=== PATIENT | female | born 1965 | race American Indian/Alaskan Native ===

== ENCOUNTER 2017-04-18 12:56 | Outpatient (CLI) | payer BC ==
--- NOTE | 2017-04-18 14:41 | Mammography Report ---
Bilateral mammogram: Compared to 05/16/15. CAD study utilized. Findings: Predominance of of adipose tissue bilaterally. Benign density right breast without significant interval change. Benign axillary nodes. No microcalcification. Impression: Benign findings. Annual followup recommended. BI-RADS CATEGORY: 2 = Benign ACR BI-RADS MAMMOGRAPHIC CODES: 0 = Needs additional imaging evaluation; 1 = Negative; 2 = Benign; 3 = Probably benign; 4 = Suspicious; 5 = Malignant; 6 = Known biopsy-proven malignancy COMMENT: 1. Dense breast tissue, i.e., adenosis, fibrocystic changes, etc., may obscure an underlying neoplasm. 2. Approximately 10% of cancers are not detected with mammography. 3. A negative mammography report should not delay biopsy if a clinically suspicious mass is present. COMMENT: Patient follow-up letters are generated in [employer].
== END 2017-04-18 12:57 | disposition home or self-care (01) ==
LOC: MAMMO 12:56
PROVIDERS: ATTEND Obstetrics & Gynecology
DX: Z12.31 Encounter for screening mammogram for malignant neoplasm of breast (principal); I10 Essential (primary) hypertension; D64.9 Anemia, unspecified; F17.200 Nicotine dependence, unspecified, uncomplicated
CPT/HCPCS: 77067; G0202

== ENCOUNTER 2017-04-22 18:12 | Emergency (ER) | payer BC ==
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
[2017-04-22 21:17] VITALS: BP 151/74
[2017-04-22] MEDS ORDERED: TORADOL IM ONE (22:51)
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
--- NOTE | 2017-04-23 08:20 | XRay Report ---
LEFT HAND, 3 views: History: Left hand pain. A ring obscures part of the proximal phalanx of the fourth digit. The bony architecture is intact. Bony alignment is normal. No soft tissue abnormalities are seen. The joint spaces appear preserved. IMPRESSION: No abnormality identified.
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
== END 2017-04-22 23:13 | disposition home or self-care (01) ==
LOC: ED 18:12
DX: S39.012A Strain of muscle, fascia and tendon of lower back, initial encounter (principal); S60.222A Contusion of left hand, initial encounter; I10 Essential (primary) hypertension; F17.200 Nicotine dependence, unspecified, uncomplicated; V49.59XA Passenger injured in collision with other motor vehicles in traffic accident, initial encounter; Y92.488 Other paved roadways as the place of occurrence of the external cause; Y93.89 Activity, other specified; Y99.8 Other external cause status
CPT/HCPCS: 72100; 73130; 96372; 99283; J1885

== ENCOUNTER 2017-05-27 16:19 | Inpatient (IN) | payer BC ==
[2017-05-27] MEDS ORDERED: NACL 0.9% 1000 ML 1,000 ML ONE (16:47)
[2017-05-27] MEDS ORDERED: ZOFRAN ONE (16:47)
[2017-05-27] MEDS ORDERED: ZOFRAN IV ONE (16:50)
[2017-05-27] MEDS ORDERED: MORPHINE IV ONE ×3 (16:50→18:52)
[2017-05-27] MEDS ORDERED: NACL 0.9% 1000 ML 1,000 ML IV ONE ×2 (16:50→18:55)
[2017-05-27] MEDS ORDERED: MORPHINE ONE (16:56)
--- NOTE | 2017-05-27 16:58 | Emergency Department Report ---
ED Abdominal Pain HPI - General Chief Complaint: Abdominal Pain Stated Complaint: ABD PAIN Time Seen by Provider: 05/27/17 16:46 Source: patient, family, EMS Mode of arrival: Stretcher Limitations: No Limitations - History of Present Illness MD Complaint: abdominal pain Location: diffuse Radiation: none Migration to: no migration Severity: moderate Quality: sharp Consistency: constant Associated Symptoms: nausea. denies: vomiting, diarrhea, fever, hematemesis, hematochezia, melena, hematuria, anorexia, syncope - Related Data Home Medications Medication Instructions Recorded Confirmed Last Taken Triamter/Hctz 37.5-25 mg 1 tab PO QDAY 03/28/14 04/22/17 04/14/17 [Maxzide-25] Previous Rx's Medication Instructions Recorded Last Taken Type Cyclobenzaprine [Flexeril] 10 mg PO TID PRN #10 tablet 04/22/17 Unknown Rx HYDROcodone/APAP 5-325 [[place] 1 - 2 each PO Q6HR PRN #10 tablet 04/22/17 Unknown Rx 5/325] Ibuprofen [Motrin 800 MG tab] 800 mg PO Q8HR PRN #20 tablet 04/22/17 Unknown Rx Allergies Allergy/AdvReac Type Severity Reaction Status Date / Time No Known Allergies Allergy Verified 04/22/17 21:17 ED Review of Systems ROS: Stated complaint: ABD PAIN Other details as noted in HPI Comment: All other systems reviewed and negative Constitutional: denies: chills, fever, malaise Respiratory: denies: cough, orthopnea, shortness of breath, SOB with exertion Cardiovascular: denies: chest pain, palpitations Gastrointestinal: abdominal pain, nausea, diarrhea. denies: vomiting, constipation, hematemesis, melena, hematochezia Genitourinary: denies: urgency, dysuria, frequency Musculoskeletal: denies: back pain Neurological: denies: headache ED Past Medical Hx - Past Medical History Previous Medical History?: Yes Hx Hypertension: Yes Hx Congestive Heart Failure: No Hx Diabetes: Yes (dx 05/27/2017) Hx Asthma: No Hx COPD: No Hx HIV: No Additional medical history: Uterine fibroids - Surgical History Past Surgical History?: Yes Hx Breast Surgery: Yes (BREAST REDUCTION) Additional Surgical History: Hemmorroidectomy. Tummy tuck - Social History Smoking Status: Current Every Day Smoker (1/2.5 pack per day) Substance Use Type: None (denies illicit drug use), Alcohol (occasional) - Medications Home Medications: Home Medications Medication Instructions Recorded Confirmed Last Taken Type Triamter/Hctz 37.5-25 mg 1 tab PO QDAY 03/28/14 04/22/17 04/14/17 History [Maxzide-25] Cyclobenzaprine [Flexeril] 10 mg PO TID PRN #10 tablet 04/22/17 Unknown Rx HYDROcodone/APAP 5-325 [[place] 1 - 2 each PO Q6HR PRN #10 tablet 04/22/17 Unknown Rx 5/325] Ibuprofen [Motrin 800 MG tab] 800 mg PO Q8HR PRN #20 tablet 04/22/17 Unknown Rx ED Physical Exam - General Limitations: No Limitations General appearance: alert, in distress (due to pain) - Head Head exam: Present: normocephalic - Eye Eye exam: Present: normal appearance - ENT ENT exam: Present: normal exam - Neck Neck exam: Present: normal inspection, full ROM. Absent: tenderness, meningismus - Respiratory Respiratory exam: Present: normal lung sounds bilaterally. Absent: respiratory distress, wheezes, rales, rhonchi, stridor, chest wall tenderness, decreased breath sounds, prolonged expiratory - Cardiovascular Cardiovascular Exam: Present: regular rate, normal rhythm, normal heart sounds. Absent: systolic murmur, diastolic murmur - GI/Abdominal GI/Abdominal exam: Present: soft, tenderness (diffuse), normal bowel sounds. Absent: distended, guarding, rebound, rigid, diminished bowel sounds, organomegaly, mass, bruit, pulsatile mass, hernia - Extremities Exam Extremities exam: Present: normal inspection, full ROM, normal capillary refill - Back Exam Back exam: Present: normal inspection. Absent: CVA tenderness (R), CVA tenderness (L) - Neurological Exam Neurological exam: Present: alert, oriented X3, CN II-XII intact - Psychiatric Psychiatric exam: Present: normal affect. Absent: depressed - Skin Skin exam: Present: warm, dry, intact, normal color ED Course Vital Signs 05/27/17 05/27/17 16:24 17:02 Temperature 98.8 F Pulse Rate 92 H Respiratory 20 16 Rate Blood Pressure 130/90 O2 Sat by Pulse 98 99 Oximetry - Reevaluation(s) Reevaluation #1: 05/27/17 18:53 Patient stated that she still hurting. Admitted for drinking alcohol every day. ED Medical Decision Making - Lab Data Result diagrams: 05/27/17 16:30 05/27/17 16:30 - Radiology Data Radiology results: report reviewed CT abdomen and pelvis is acute pancreatitis - Medical Decision Making discuss with dr Silva for admission. Critical care attestation.: If time is entered above; I have spent that time in minutes in the direct care of this critically ill patient, excluding procedure time. ED Disposition Clinical Impression: Abdominal pain, Acute pancreatitis Disposition: DC- OP ADMIT IP TO THIS HOSP Is pt being admited?: Yes Condition: Stable Instructions: Abdominal Pain (ED)
[2017-05-27 17:08] LABS: Basophils % (Auto) 0.9 % (0.0-1.8); Eosinophils % (Auto) 0.8 % (0.0-4.3); Hematocrit 41.6 % (30.3-42.9); Hemoglobin 14.3 gm/dl (10.1-14.3); Mean Corpuscular HGB Conc 34 % (30-34); Mean Corpuscular Hemoglobin 30 pg (28-32); Mean Corpuscular Volume 88 fl (79-97); Platelet Count 224 K/mm3 (140-440); Red Blood Count 4.71 M/mm3 (3.65-5.03); Red Cell Distribution Width 12.8 % (13.2-15.2); White Blood Count 10.8 K/mm3 (4.5-11.0)
[2017-05-27 17:11] LABS: Alanine Aminotransferase 46 units/L (7-56); Albumin/Globulin Ratio 1.6 %; Alkaline Phosphatase 79 units/L (35-129); Anion Gap 18 mmol/L; Blood Urea Nitrogen 14 mg/dL (7-17); Calcium 8.7 mg/dL (8.4-10.2); Carbon Dioxide 26 mmol/L (22-30); Chloride 91.2 mmol/L (98-107); Glucose 381 mg/dL (65-100); Potassium 3.6 mmol/L (3.6-5.0); Sodium 132 mmol/L (137-145); Total Protein 6.5 g/dL (6.3-8.2)
[2017-05-27 17:59] LABS: Bilirubin,Urine NEG (Negative); Blood,Urine NEG (Negative); Ketones,Urine TR mg/dL (Negative); Leukocyte Esterase,Urine NEG (Negative); Nitrite,Urine NEG (Negative); Protein,Urine <15 mg/dL mg/dL (Negative); Urobilinogen,Urine < 2.0 mg/dL (<2.0)
--- NOTE | 2017-05-27 18:44 | Cat Scan Report ---
FINAL REPORT EXAM: CT ABDOMEN PELVIS W CON HISTORY: abdominal pain TECHNIQUE: Dynamic helical CT scan through the abdomen and pelvis during and again after intravenous injection of iodinated contrast. Images are reconstructed in the sagittal and coronal planes. Oral contrast was not given. PRIORS: None. FINDINGS: The lung bases are clear. There is a small amount of fluid surrounding the body and tail of the pancreas. Otherwise, the pancreas appears normal. There is diffuse low-attenuation of the liver consistent with fatty infiltration. The liver is enlarged measuring 22.2 cm in craniocaudal dimension. The gallbladder, spleen and adrenal glands appear normal. The kidneys appear normal. The pelvic organs appear grossly normal. There is a phlebolith in the right true pelvis. The stomach appears grossly within normal limits. There are no abnormally dilated loops of bowel or acute inflammatory changes. There is been subtotal colectomy with small-bowel rectal anastomosis. The abdominal aorta has a normal diameter. There is degenerative disc and facet disease at L5-S1. Otherwise, the bones and subcutaneous soft tissues are unremarkable for age. IMPRESSION: 1. Small amount of fluid around the body and tail of the pancreas is consistent with acute pancreatitis. 2. Diffuse fatty infiltration of the liver with hepatomegaly. 3. Previous subtotal colectomy
--- NOTE | 2017-05-27 18:58 | History and Physical Report ---
History of Present Illness Chief complaint: My stomach hurts History of present illness: 51 YO Female with HTN, DM, Fibroids presents to ED for evaluation. Pt states that she has experienced abdominal pain for the past 3 days with worsening symptoms over the past 1 day. Pt states that pain is 6-10/10, epigastric, nonradiating, constant, worse with eating, and movement, no alleviating factors. Pt denies fever, chills, CP, Palpitations, hematemesis, BRBPR, unintentional weight loss, night sweats, productive cough, or known ill contacts , or ingestion of food or water from new or different sources. Past History Past Medical History: diabetes, hypertension Past Surgical History: Other (hemorrhoidectomy, breast reduction, panniculectomy ) Social history: , lives with family. denies: smoking, alcohol abuse, prescription drug abuse Family history: hypertension Medications and Allergies Allergies Allergy/AdvReac Type Severity Reaction Status Date / Time No Known Allergies Allergy Verified 04/22/17 21:17 Home Medications Medication Instructions Recorded Confirmed Last Taken Type Triamter/Hctz 37.5-25 mg 1 tab PO QDAY 03/28/14 05/27/17 04/14/17 History [Maxzide-25] Cyclobenzaprine [Flexeril] 10 mg PO TID PRN #10 tablet 04/22/17 05/27/17 Unknown Rx Ibuprofen [Motrin 800 MG tab] 800 mg PO Q8HR PRN #20 tablet 04/22/17 05/27/17 Unknown Rx Promethazine /Codeine 5 ml PO TID 05/27/17 05/27/17 Unknown History [Phenergan/Codeine 6.25-10 mg/5 ml] predniSONE [Deltasone] 20 mg PO BID 05/27/17 05/27/17 Unknown History traMADol [Ultram 50 MG tab] 50 mg PO BID 05/27/17 05/27/17 Unknown History Active Meds: Active Medications Sodium Chloride (Nacl 0.9% 1000 Ml) 1,000 mls @ 125 mls/hr IV ONCE ONE Stop: 05/28/17 02:54 Review of Systems Constitutional: no weight loss, no weight gain, no fever, no chills, no sweats Ears, nose, mouth and throat: no ear pain, no ear discharge, no tinnitis, no decreased hearing, no nose pain, no nasal congestion Breasts: no change in shape, no swelling, no mass Cardiovascular: no chest pain, no orthopnea, no palpitations, no rapid/ irregular heart beat Respiratory: no cough, no cough with sputum, no excessive sputum, no hemoptysis , no shortness of breath, no dyspnea on exertion Gastrointestinal: abdominal pain, nausea, no diarrhea, no constipation, no change in bowel habits, no hematemesis, no coffee ground emesis, no BRBPR Genitourinary Female: no pelvic pain, no flank pain, no menorrhagia, no dysuria , no urinary frequency Rectal: no pain, no incontinence, no bleeding Musculoskeletal: no neck stiffness, no neck pain, no shooting arm pain, no arm numbness/tingling, no low back pain, no shooting leg pain Integumentary: no rash, no pruritis, no redness, no sores, no wounds Neurological: no head injury, no transient paralysis, no paralysis, no weakness , no parathesias Psychiatric: no anxiety, no memory loss, no change in sleep habits, no sleep disturbances, no insomnia, no hypersomnia Endocrine: no cold intolerance, no heat intolerance, no polyphagia, no excessive thirst, no polydipsia Hematologic/Lymphatic: no easy bruising, no easy bleeding Allergic/Immunologic: no urticaria, no allergic rhinitis, no wheezing Exam - Constitutional Vitals: Temp Pulse Resp BP Pulse Ox 98.8 F 92 H 16 130/90 99 05/27/17 16:24 05/27/17 16:24 05/27/17 17:02 05/27/17 16:24 05/27/17 17:02 General appearance: Present: mild distress - EENT Eyes: Present: PERRL ENT: hearing intact, clear oral mucosa - Neck Neck: Present: supple, normal ROM - Respiratory Respiratory effort: normal Respiratory: bilateral: CTA - Cardiovascular Heart Sounds: Present: S1 & S2. Absent: rub, click - Extremities Extremities: pulses symmetrical, No edema Peripheral Pulses: within normal limits - Abdominal General gastrointestinal: Present: soft, tender, hypoactive bowel sounds. Absent: hepatomegaly, splenomegaly Female genitourinary: Present: normal - Rectal Rectal Exam: normal rectal tone - Integumentary Integumentary: Present: clear, warm, dry - Musculoskeletal Musculoskeletal: strength equal bilaterally, generalized weakness - Psychiatric Psychiatric: appropriate mood/affect, intact judgment & insight - Neurologic Neurologic: CNII-XII intact, moves all extremities Results - Labs CBC & Chem 7: 05/27/17 16:30 05/27/17 16:30 Labs: Abnormal lab results 05/27/17 05/27/17 05/27/17 Range/Units 16:30 16:30 16:30 RDW 12.8 L (13.2-15.2) % Lymph % (Auto) 35.8 H (13.4-35.0) % Sodium 132 L (137-145) mmol/L Chloride 91.2 L (98-107) mmol/L Glucose 381 H (65-100) mg/dL POC Glucose (70-105) Lipase 200 H (13-60) units/L 05/27/17 05/27/17 Range/Units 16:41 17:27 RDW (13.2-15.2) % Lymph % (Auto) (13.4-35.0) % Sodium (137-145) mmol/L Chloride (98-107) mmol/L Glucose (65-100) mg/dL POC Glucose 389 H 312 H (70-105) Lipase (13-60) units/L Assessment and Plan - Patient Problems (1) Acute pancreatitis Current Visit: Yes Status: Acute Qualifiers: Pancreatitis type: P Acute pancreatitis complication: A Plan to address problem: IVF replacement, pain control, monitor uop q shift, serial abdominal exam. (2) Hyponatremia syndrome Current Visit: Yes Status: Acute Plan to address problem: IVF replacement, supportive care, monitor uop q shift (3) HTN (hypertension) Current Visit: Yes Status: Acute Qualifiers: Hypertension type: H Plan to address problem: Monitor bp q shift, (4) Diabetes Current Visit: Yes Status: Acute Qualifiers: Diabetes mellitus type: D Diabetes mellitus complication status: D Diabetes mellitus complication detail: D Diabetic retinopathy severity: D Proliferative retinopathy type: P Diabetes mellitus macular edema: D Diabetes mellitus retirement insulin use: D Laterality: L Chronic kidney disease stage: C Plan to address problem: ADA diet as tolerated, insulin, accu check (5) DVT prophylaxis Current Visit: Yes Status: Acute
[2017-05-27] MEDS ORDERED: TYLENOL PO PRN (19:00)
[2017-05-27] MEDS ORDERED: MILK OF MAGNESIA PO PRN (19:00)
[2017-05-27] MEDS ORDERED: PROVENTIL IH PRN (19:00)
[2017-05-27] MEDS ORDERED: ZOFRAN IV PRN (19:00)
[2017-05-27] MEDS ORDERED: DULCOLAX PR PRN (19:00)
[2017-05-27] MEDS: NACL 0.45% 1000 ML 1,000 ML IV SCH (20:58)
[2017-05-27] MEDS: MORPHINE IV PRN (20:59)
[2017-05-27] MEDS ORDERED: NOVOLOG SUB-Q SCH (23:45)
[2017-05-27] MEDS: NOVOLOG SUB-Q SCH (23:51)
[2017-05-28] MEDS: MORPHINE IV PRN ×5 (01:16→21:25)
[2017-05-28 04:59] LABS: Basophils % (Auto) 0.4 % (0.0-1.8); Eosinophils % (Auto) 1.3 % (0.0-4.3); Hematocrit 42.7 % (30.3-42.9); Hemoglobin 14.3 gm/dl (10.1-14.3); Mean Corpuscular HGB Conc 34 % (30-34); Mean Corpuscular Hemoglobin 30 pg (28-32); Mean Corpuscular Volume 88 fl (79-97); Platelet Count 204 K/mm3 (140-440); Red Blood Count 4.83 M/mm3 (3.65-5.03)
[2017-05-28] MEDS ORDERED: NOVOLOG SUB-Q SCH (07:30)
[2017-05-28] MEDS: NOVOLOG SUB-Q SCH ×4 (08:30→21:52)
[2017-05-28] MEDS: NACL 0.45% 1000 ML 1,000 ML IV SCH (10:21)
[2017-05-28] MEDS: HABITROL TD SCH (12:39)
--- NOTE | 2017-05-28 14:58 | Ultrasound Report ---
Ultrasound of the right upper quadrant. History: Abdominal pain and nausea. Findings: There is increased echogenicity of the hepatic parenchyma with no focal abnormalities. The abdominal aorta is normal. There are low level dependent echoes within the gallbladder lumen without acoustic shadowing. This probably represents sludge formation. The wall of gallbladder is not thickened. The common bile duct is normal in caliber. The pancreas is poorly imaged due to technical factors. The right kidney is normal. Impression: 1. Hepatic steatosis. 2. Mild sludge formation within the gallbladder.
[2017-05-28 15:30] LABS: Cholesterol 220 mg/dL (50-199); HDL Cholesterol 37 mg/dL (40-59); LDL Cholesterol,Direct TNR mg/dL (50-130); Triglycerides 762 mg/dL (2-149)
--- NOTE | 2017-05-28 15:36 | Progress Note ---
Assessment and Plan Assessment and plan: 51 yo AAF with HTN and DM, who drinks alcohol socially, presented for worsening abdominal pain 1. Acute pancreatitis 2. Hyponatremia 3. HTN 4. Diabetes 5. Bronchitis / COPD exacerbation / MATT 6. Nicotine dependence 7. DVT prophylaxis (1) Acute pancreatitis Current Visit: Yes Status: Acute Qualifiers: Pancreatitis type: P Acute pancreatitis complication: A Plan to address problem: IVF replacement, pain control, monitor uop q shift, serial abdominal exam. (2) Hyponatremia syndrome Current Visit: Yes Status: Acute Plan to address problem: IVF replacement, supportive care, monitor uop q shift (3) HTN (hypertension) Current Visit: Yes Status: Acute Qualifiers: Hypertension type: H Plan to address problem: Monitor bp q shift, (4) Diabetes Current Visit: Yes Status: Acute Qualifiers: Diabetes mellitus type: D Diabetes mellitus complication status: D Diabetes mellitus complication detail: D Diabetic retinopathy severity: D Proliferative retinopathy type: P Diabetes mellitus macular edema: D Diabetes mellitus detention insulin use: D Laterality: L Chronic kidney disease stage: C Plan to address problem: ADA diet as tolerated, insulin, accu check Hospitalist Physical - Constitutional Vitals: Temp Pulse Resp BP Pulse Ox 98.6 F 100 H 18 151/92 100 05/28/17 07:54 05/28/17 07:54 05/28/17 07:54 05/28/17 07:54 05/28/17 09:49 General appearance: Present: mild distress Results - Labs CBC & Chem 7: 05/28/17 04:21 05/27/17 16:30 Labs: Laboratory Last Values WBC 11.0 K/mm3 (4.5-11.0) 05/28/17 04:21 RBC 4.83 M/mm3 (3.65-5.03) 05/28/17 04:21 Hgb 14.3 gm/dl (10.1-14.3) 05/28/17 04:21 Hct 42.7 % (30.3-42.9) 05/28/17 04:21 MCV 88 fl (79-97) 05/28/17 04:21 MCH 30 pg (28-32) 05/28/17 04:21 MCHC 34 % (30-34) 05/28/17 04:21 RDW 13.0 % (13.2-15.2) L 05/28/17 04:21 Plt Count 204 K/mm3 (140-440) 05/28/17 04:21 Lymph % (Auto) 24.3 % (13.4-35.0) 05/28/17 04:21 [place] % (Auto) 3.1 % (0.0-7.3) 05/28/17 04:21 Eos % (Auto) 1.3 % (0.0-4.3) 05/28/17 04:21 Baso % (Auto) 0.4 % (0.0-1.8) 05/28/17 04:21 Lymph # 2.7 K/mm3 (1.2-5.4) 05/28/17 04:21 [place] # 0.3 K/mm3 (0.0-0.8) 05/28/17 04:21 Eos # 0.1 K/mm3 (0.0-0.4) 05/28/17 04:21 Baso # 0.0 K/mm3 (0.0-0.1) 05/28/17 04:21 Seg Neutrophils % 70.9 % (40.0-70.0) H 05/28/17 04:21 Seg Neutrophils # 7.8 K/mm3 (1.8-7.7) H 05/28/17 04:21 VBG pH 7.358 (7.320-7.420) 05/27/17 16:30 Sodium 132 mmol/L (137-145) L 05/27/17 16:30 Potassium 3.6 mmol/L (3.6-5.0) 05/27/17 16:30 Chloride 91.2 mmol/L (98-107) L 05/27/17 16:30 Carbon Dioxide 26 mmol/L (22-30) 05/27/17 16:30 Anion Gap 18 mmol/L 05/27/17 16:30 BUN 14 mg/dL (7-17) 05/27/17 16:30 Creatinine 0.7 mg/dL (0.7-1.2) 05/27/17 16:30 Estimated GFR > 60 ml/min 05/27/17 16:30 BUN/Creatinine Ratio 20.00 % 05/27/17 16:30 Glucose 381 mg/dL (65-100) H 05/27/17 16:30 POC Glucose 247 (70-105) H 05/28/17 11:15 Calcium 8.7 mg/dL (8.4-10.2) 05/27/17 16:30 Total Bilirubin 0.40 mg/dL (0.1-1.2) 05/27/17 16:30 AST 29 units/L (5-40) 05/27/17 16:30 ALT 46 units/L (7-56) 05/27/17 16:30 Alkaline Phosphatase 79 units/L (35-129) 05/27/17 16:30 Total Protein 6.5 g/dL (6.3-8.2) 05/27/17 16:30 Albumin 4.0 g/dL (3.9-5) 05/27/17 16:30 Albumin/Globulin Ratio 1.6 % 05/27/17 16:30 Triglycerides 762 mg/dL (2-149) H 05/28/17 12:33 Cholesterol 220 mg/dL (50-199) H 05/28/17 12:33 LDL Cholesterol Direct TNR 05/28/17 12:33 HDL Cholesterol 37 mg/dL (40-59) L 05/28/17 12:33 Cholesterol/HDL Ratio 5.94 % 05/28/17 12:33 Lipase 200 units/L (13-60) H 05/27/17 16:30 Urine Color Straw (Yellow) 05/27/17 17:17 Urine Turbidity Clear (Clear) 05/27/17 17:17 Urine pH 6.0 (5.0-7.0) 05/27/17 17:17 Ur Specific [place] 1.026 (1.003-1.030) 05/27/17 17:17 Urine Protein <15 mg/dl mg/dL (Negative) 05/27/17 17:17 Urine Glucose (UA) >=500 mg/dL (Negative) 05/27/17 17:17 Urine Ketones Tr mg/dL (Negative) 05/27/17 17:17 Urine Blood Neg (Negative) 05/27/17 17:17 Urine Nitrite Neg (Negative) 05/27/17 17:17 Urine Bilirubin Neg (Negative) 05/27/17 17:17 Urine Urobilinogen < 2.0 mg/dL (<2.0) 05/27/17 17:17 Ur Leukocyte Esterase Neg (Negative) 05/27/17 17:17 Urine WBC (Auto) 1.0 /HPF (0.0-6.0) 05/27/17 17:17 Urine RBC (Auto) 3.0 /HPF (0.0-6.0) 05/27/17 17:17 U Epithel Cells (Auto) 1.0 /HPF (0-13.0) 05/27/17 17:17 Plasma/Serum Alcohol < 0.01 gm% (0-0.07) 05/27/17 19:18
[2017-05-28] MEDS ORDERED: APRESOLINE IV PRN (15:40)
[2017-05-29] MEDS: NACL 0.45% 1000 ML 1,000 ML IV SCH ×2 (01:24→14:38)
[2017-05-29] MEDS: MORPHINE IV PRN ×4 (01:38→20:04)
[2017-05-29 06:25] LABS: Anion Gap 16 mmol/L; Blood Urea Nitrogen 7 mg/dL (7-17); Calcium 8.3 mg/dL (8.4-10.2); Carbon Dioxide 24 mmol/L (22-30); Glucose 213 mg/dL (65-100); Lipase 162 units/L (13-60); Potassium 3.4 mmol/L (3.6-5.0); Sodium 129 mmol/L (137-145)
[2017-05-29] MEDS: NOVOLOG SUB-Q SCH ×4 (07:52→22:32)
[2017-05-29] MEDS: HABITROL TD SCH (10:10)
[2017-05-29] MEDS: TRICOR PO SCH (13:13)
--- NOTE | 2017-05-29 20:07 | Progress Note ---
Assessment and Plan Assessment and plan: 51 yo AAF with HTN and DM, who drinks alcohol socially, presented for worsening abdominal pain 1. Acute pancreatitis 2. Hyponatremia 3. HTN 4. Diabetes 5. Bronchitis / COPD exacerbation / MATT 6. Nicotine dependence 7. DVT prophylaxis (1) Acute pancreatitis Current Visit: Yes Status: Acute Qualifiers: Pancreatitis type: P Acute pancreatitis complication: A Plan to address problem: IVF replacement, pain control, monitor uop q shift, serial abdominal exam. 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 Laterality: L Chronic kidney disease stage: C Plan to address problem: ADA diet as tolerated, insulin, accu check Hospitalist Physical - Constitutional Vitals: Temp Pulse Resp BP Pulse Ox 98.3 F 98 H 22 146/85 99 05/29/17 16:33 05/29/17 16:33 05/29/17 16:33 05/29/17 16:33 05/29/17 16:33 General appearance: Present: mild distress Results - Labs CBC & Chem 7: 05/28/17 04:21 05/29/17 05:11 Labs: Laboratory Last Values WBC 11.0 K/mm3 (4.5-11.0) 05/28/17 04:21 RBC 4.83 M/mm3 (3.65-5.03) 05/28/17 04:21 Hgb 14.3 gm/dl (10.1-14.3) 05/28/17 04:21 Hct 42.7 % (30.3-42.9) 05/28/17 04:21 MCV 88 fl (79-97) 05/28/17 04:21 MCH 30 pg (28-32) 05/28/17 04:21 MCHC 34 % (30-34) 05/28/17 04:21 RDW 13.0 % (13.2-15.2) L 05/28/17 04:21 Plt Count 204 K/mm3 (140-440) 05/28/17 04:21 Lymph % (Auto) 24.3 % (13.4-35.0) 05/28/17 04:21 [place] % (Auto) 3.1 % (0.0-7.3) 05/28/17 04:21 Eos % (Auto) 1.3 % (0.0-4.3) 05/28/17 04:21 Baso % (Auto) 0.4 % (0.0-1.8) 05/28/17 04:21 Lymph # 2.7 K/mm3 (1.2-5.4) 05/28/17 04:21 [place] # 0.3 K/mm3 (0.0-0.8) 05/28/17 04:21 Eos # 0.1 K/mm3 (0.0-0.4) 05/28/17 04:21 Baso # 0.0 K/mm3 (0.0-0.1) 05/28/17 04:21 Seg Neutrophils % 70.9 % (40.0-70.0) H 05/28/17 04:21 Seg Neutrophils # 7.8 K/mm3 (1.8-7.7) H 05/28/17 04:21 VBG pH 7.358 (7.320-7.420) 05/27/17 16:30 Sodium 129 mmol/L (137-145) L 05/29/17 05:11 Potassium 3.4 mmol/L (3.6-5.0) L 05/29/17 05:11 Chloride 92.0 mmol/L (98-107) L 05/29/17 05:11 Carbon Dioxide 24 mmol/L (22-30) 05/29/17 05:11 Anion Gap 16 mmol/L 05/29/17 05:11 BUN 7 mg/dL (7-17) 05/29/17 05:11 Creatinine 0.5 mg/dL (0.7-1.2) L 05/29/17 05:11 Estimated GFR > 60 ml/min 05/29/17 05:11 BUN/Creatinine Ratio 14.00 % 05/29/17 05:11 Glucose 213 mg/dL (65-100) H 05/29/17 05:11 POC Glucose 312 (70-105) H 05/29/17 16:45 Hemoglobin A1c 10.3 % (4-6) H 05/28/17 04:21 Calcium 8.3 mg/dL (8.4-10.2) L 05/29/17 05:11 Total Bilirubin 0.40 mg/dL (0.1-1.2) 05/27/17 16:30 AST 29 units/L (5-40) 05/27/17 16:30 ALT 46 units/L (7-56) 05/27/17 16:30 Alkaline Phosphatase 79 units/L (35-129) 05/27/17 16:30 Total Protein 6.5 g/dL (6.3-8.2) 05/27/17 16:30 Albumin 4.0 g/dL (3.9-5) 05/27/17 16:30 Albumin/Globulin Ratio 1.6 % 05/27/17 16:30 Triglycerides 762 mg/dL (2-149) H 05/28/17 12:33 Cholesterol 220 mg/dL (50-199) H 05/28/17 12:33 LDL Cholesterol Direct TNR 05/28/17 12:33 HDL Cholesterol 37 mg/dL (40-59) L 05/28/17 12:33 Cholesterol/HDL Ratio 5.94 % 05/28/17 12:33 Lipase 162 units/L (13-60) H 05/29/17 05:11 Urine Color Straw (Yellow) 05/27/17 17:17 Urine Turbidity Clear (Clear) 05/27/17 17:17 Urine pH 6.0 (5.0-7.0) 05/27/17 17:17 Ur Specific [place] 1.026 (1.003-1.030) 05/27/17 17:17 Urine Protein <15 mg/dl mg/dL (Negative) 05/27/17 17:17 Urine Glucose (UA) >=500 mg/dL (Negative) 05/27/17 17:17 Urine Ketones Tr mg/dL (Negative) 05/27/17 17:17 Urine Blood Neg (Negative) 05/27/17 17:17 Urine Nitrite Neg (Negative) 05/27/17 17:17 Urine Bilirubin Neg (Negative) 05/27/17 17:17 Urine Urobilinogen < 2.0 mg/dL (<2.0) 05/27/17 17:17 Ur Leukocyte Esterase Neg (Negative) 05/27/17 17:17 Urine WBC (Auto) 1.0 /HPF (0.0-6.0) 05/27/17 17:17 Urine RBC (Auto) 3.0 /HPF (0.0-6.0) 05/27/17 17:17 U Epithel Cells (Auto) 1.0 /HPF (0-13.0) 05/27/17 17:17 Plasma/Serum Alcohol < 0.01 gm% (0-0.07) 05/27/17 19:18
[2017-05-30] MEDS: MORPHINE IV PRN ×4 (00:11→20:11)
[2017-05-30 05:58] LABS: Blood Urea Nitrogen 10 mg/dL (7-17); Calcium 8.6 mg/dL (8.4-10.2); Carbon Dioxide 23 mmol/L (22-30); Glucose 326 mg/dL (65-100); Lipase 93 units/L (13-60)
[2017-05-30 05:59] LABS: Anion Gap 16 mmol/L; Chloride 99.2 mmol/L (98-107); Potassium 3.7 mmol/L (3.6-5.0); Sodium 134 mmol/L (137-145)
[2017-05-30] MEDS: NACL 0.45% 1000 ML 1,000 ML IV SCH (06:08)
[2017-05-30] MEDS: NOVOLOG SUB-Q SCH ×4 (07:56→22:48)
[2017-05-30] MEDS: TRICOR PO SCH (09:10)
[2017-05-30] MEDS: HABITROL TD SCH (09:11)
--- NOTE | 2017-05-30 10:54 | Discharge Summary ---
Providers - Providers Date of Admission: 05/27/17 19:00 Date of discharge: 05/30/17 Attending physician: RADHA SCHNEIDER Primary care physician: [employer] Hospitalization Condition: Stable Disposition: DC-01 TO HOME OR SELFCARE Time spent for discharge: 40 min Exam - Physical Exam Narrative exam: seen and examined: - Constitutional Vitals: Temp Pulse Resp BP Pulse Ox 98.1 F 64 18 165/97 99 05/30/17 08:25 05/30/17 08:25 05/30/17 08:05/30/17 08:05/29/17 22:09 Plan Activity: advance as tolerated, fall precautions Diet: low cholesterol, low salt, diabetic, other (advance diet as tolerated) Follow up with: PRIMARY CARE, [Primary Care Provider] - 3-5 Days (Dr. David [address] [place] [address] [phone]) Prescriptions: AtorvaSTATin [Lipitor] 40 mg PO QHS #30 tablet Insulin Detemir [Levemir] 20 units SUB-Q QHS 30 Days Syringe & Needle,Insulin,1 ml [Insulin Syringe/Needle 1 ML] 1 each MC QHS #30 disp.syrin Fenofibrate [Tricor] 145 mg PO QDAY #30 tablet Insulin Aspart [NovoLOG Flexpen] 5 units SQ AC #30 pen Lisinopril [Zestril TAB] 20 mg PO QDAY #30 tablet Metoprolol [Lopressor TAB] 12.5 mg PO BID #15 tablet Nicotine [Habitrol] 7 mg TD DAILY #10 patch oxyCODONE /ACETAMINOPHEN [Percocet 5/325 mg] 1 tab PO Q4H PRN #12 tablet PRN Reason: Pain, Moderate (4-6) predniSONE [Deltasone] 10 mg PO QDAY #3 tablet
[2017-05-30] MEDS ORDERED: WATER FOR INJ (PF) 10 ML ONE (16:21)
[2017-05-30] MEDS ORDERED: PERCOCET 5/325 PO PRN (17:46)
--- NOTE | 2017-05-30 21:24 | Progress Note ---
Assessment and Plan Assessment and plan: 51 yo AAF with HTN and DM, who drinks alcohol socially, presented for worsening abdominal pain 1. Acute pancreatitis 2. Hyponatremia 3. HTN 4. Diabetes 5. Bronchitis / COPD exacerbation / MATT 6. Nicotine dependence 7. DVT prophylaxis (1) Acute pancreatitis Current Visit: Yes Status: Acute Qualifiers: Pancreatitis type: P Acute pancreatitis complication: A Plan to address problem: IVF replacement, pain control, monitor uop q shift, serial abdominal exam. 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 Laterality: L Chronic kidney disease stage: C Plan to address problem: ADA diet as tolerated, insulin, accu check Hospitalist Physical - Constitutional Vitals: Temp Pulse Resp BP Pulse Ox 97.3 F L 86 18 168/91 98 05/30/17 17:05 05/30/17 17:05 05/30/17 08:25 05/30/17 17:05 05/30/17 10:00 General appearance: Present: mild distress Results - Labs CBC & Chem 7: 05/28/17 04:21 05/30/17 04:33 Labs: Laboratory Last Values WBC 11.0 K/mm3 (4.5-11.0) 05/28/17 04:21 RBC 4.83 M/mm3 (3.65-5.03) 05/28/17 04:21 Hgb 14.3 gm/dl (10.1-14.3) 05/28/17 04:21 Hct 42.7 % (30.3-42.9) 05/28/17 04:21 MCV 88 fl (79-97) 05/28/17 04:21 MCH 30 pg (28-32) 05/28/17 04:21 MCHC 34 % (30-34) 05/28/17 04:21 RDW 13.0 % (13.2-15.2) L 05/28/17 04:21 Plt Count 204 K/mm3 (140-440) 05/28/17 04:21 Lymph % (Auto) 24.3 % (13.4-35.0) 05/28/17 04:21 [place] % (Auto) 3.1 % (0.0-7.3) 05/28/17 04:21 Eos % (Auto) 1.3 % (0.0-4.3) 05/28/17 04:21 Baso % (Auto) 0.4 % (0.0-1.8) 05/28/17 04:21 Lymph # 2.7 K/mm3 (1.2-5.4) 05/28/17 04:21 [place] # 0.3 K/mm3 (0.0-0.8) 05/28/17 04:21 Eos # 0.1 K/mm3 (0.0-0.4) 05/28/17 04:21 Baso # 0.0 K/mm3 (0.0-0.1) 05/28/17 04:21 Seg Neutrophils % 70.9 % (40.0-70.0) H 05/28/17 04:21 Seg Neutrophils # 7.8 K/mm3 (1.8-7.7) H 05/28/17 04:21 VBG pH 7.358 (7.320-7.420) 05/27/17 16:30 Sodium 134 mmol/L (137-145) L 05/30/17 04:33 Potassium 3.7 mmol/L (3.6-5.0) 05/30/17 04:33 Chloride 99.2 mmol/L (98-107) 05/30/17 04:33 Carbon Dioxide 23 mmol/L (22-30) 05/30/17 04:33 Anion Gap 16 mmol/L 05/30/17 04:33 BUN 10 mg/dL (7-17) 05/30/17 04:33 Creatinine 0.5 mg/dL (0.7-1.2) L 05/30/17 04:33 Estimated GFR > 60 ml/min 05/30/17 04:33 BUN/Creatinine Ratio 20.00 % 05/30/17 04:33 Glucose 326 mg/dL (65-100) H 05/30/17 04:33 POC Glucose 379 (70-105) H 05/30/17 21:07 Hemoglobin A1c 10.3 % (4-6) H 05/28/17 04:21 Calcium 8.6 mg/dL (8.4-10.2) 05/30/17 04:33 Total Bilirubin 0.40 mg/dL (0.1-1.2) 05/27/17 16:30 AST 29 units/L (5-40) 05/27/17 16:30 ALT 46 units/L (7-56) 05/27/17 16:30 Alkaline Phosphatase 79 units/L (35-129) 05/27/17 16:30 Total Protein 6.5 g/dL (6.3-8.2) 05/27/17 16:30 Albumin 4.0 g/dL (3.9-5) 05/27/17 16:30 Albumin/Globulin Ratio 1.6 % 05/27/17 16:30 Triglycerides 762 mg/dL (2-149) H 05/28/17 12:33 Cholesterol 220 mg/dL (50-199) H 05/28/17 12:33 LDL Cholesterol Direct TNR 05/28/17 12:33 HDL Cholesterol 37 mg/dL (40-59) L 05/28/17 12:33 Cholesterol/HDL Ratio 5.94 % 05/28/17 12:33 Lipase 93 units/L (13-60) H 05/30/17 04:33 Urine Color Straw (Yellow) 05/27/17 17:17 Urine Turbidity Clear (Clear) 05/27/17 17:17 Urine pH 6.0 (5.0-7.0) 05/27/17 17:17 Ur Specific [place] 1.026 (1.003-1.030) 05/27/17 17:17 Urine Protein <15 mg/dl mg/dL (Negative) 05/27/17 17:17 Urine Glucose (UA) >=500 mg/dL (Negative) 05/27/17 17:17 Urine Ketones Tr mg/dL (Negative) 05/27/17 17:17 Urine Blood Neg (Negative) 05/27/17 17:17 Urine Nitrite Neg (Negative) 05/27/17 17:17 Urine Bilirubin Neg (Negative) 05/27/17 17:17 Urine Urobilinogen < 2.0 mg/dL (<2.0) 05/27/17 17:17 Ur Leukocyte Esterase Neg (Negative) 05/27/17 17:17 Urine WBC (Auto) 1.0 /HPF (0.0-6.0) 05/27/17 17:17 Urine RBC (Auto) 3.0 /HPF (0.0-6.0) 05/27/17 17:17 U Epithel Cells (Auto) 1.0 /HPF (0-13.0) 05/27/17 17:17 Plasma/Serum Alcohol < 0.01 gm% (0-0.07) 05/27/17 19:18
[2017-05-30] MEDS ORDERED: LEVEMIR SUB-Q SCH (22:00)
[2017-05-30] MEDS: LOPRESSOR PO SCH (22:42)
[2017-05-30] MEDS: ZESTRIL PO SCH (22:43)
[2017-05-31] MEDS: MORPHINE IV PRN ×3 (01:20→10:58)
[2017-05-31 06:04] LABS: Anion Gap 18 mmol/L; Blood Urea Nitrogen 12 mg/dL (7-17); Calcium 8.8 mg/dL (8.4-10.2); Carbon Dioxide 24 mmol/L (22-30); Chloride 97.1 mmol/L (98-107); Glucose 414 mg/dL (65-100); Potassium 3.7 mmol/L (3.6-5.0); Sodium 135 mmol/L (137-145)
[2017-05-31] MEDS: NOVOLOG SUB-Q SCH ×2 (09:14→12:49)
[2017-05-31] MEDS ORDERED: DELTASONE PO SCH (10:00)
[2017-05-31 10:01] VITALS: BP 149/90
[2017-05-31] MEDS: HABITROL TD SCH (10:56)
[2017-05-31] MEDS: LOPRESSOR PO SCH (10:56)
[2017-05-31] MEDS: ZESTRIL PO SCH (10:57)
[2017-05-31] MEDS: TRICOR PO SCH (10:57)
== END 2017-05-31 13:00 | disposition home or self-care (01) | DRG 190 ==
LOC: ED 16:19 → 3A 19:00
PROVIDERS: ADMIT Internal Medicine; ATTEND Internal Medicine
DX: J44.0 Chronic obstructive pulmonary disease with (acute) lower respiratory infection (principal); K85.90 Acute pancreatitis without necrosis or infection, unspecified; E87.1 Hypo-osmolality and hyponatremia; J44.1 Chronic obstructive pulmonary disease with (acute) exacerbation; E11.9 Type 2 diabetes mellitus without complications; I10 Essential (primary) hypertension; F17.210 Nicotine dependence, cigarettes, uncomplicated; Z88.8 Allergy status to other drugs, medicaments and biological substances; Z82.49 Family history of ischemic heart disease and other diseases of the circulatory system; G47.33 Obstructive sleep apnea (adult) (pediatric); Z79.4 Long term (current) use of insulin; Z79.899 Other long term (current) drug therapy; J20.9 Acute bronchitis, unspecified
CPT/HCPCS: 36415; 74177; 76705; 80048; 80053; 80061; 80320; 81001; 82805; 82962; 83036; 83690; 85025; 94640; 94760; 96361; 96374; 96375; 96376; 99406; A9270-GY; G0480; J0360; J1815; J1818; J2270; J2405; J2920; J7030; J7512; Q9967